=== PATIENT | male | born 1965 | race Caucasian/White ===

== ENCOUNTER 2024-11-24 13:27 | Emergency (ER) | payer BC ==
[~2024-11-24] VITALS: Ht 175.3 cm; Wt 78.0 kg
[2024-11-24 13:30] VITALS: O2SAT 99
[2024-11-24] MEDS: LIDOCAINE HCL/EPINEPHRINE 1%-EPI 1:100,000 10ML VIAL INFIL ONE (14:00)
[2024-11-24] MEDS: TETANUS, DIPHTHERIA, PERTUSSIS VAC/PF 0.5ML (>10YR OLD) IM ONE (14:34)
[2024-11-24] MEDS ORDERED: IBUP-2029 MT (15:42)
[2024-11-24 16:07] VITALS: BP 147/78; PULSE 95; RESP 14; TEMP 36.9; O2SAT 99
== END 2024-11-24 16:08 | disposition home or self-care (01) ==
LOC: ER 13:27
DX: S06.0XAA Concussion with loss of consciousness status unknown, initial encounter (principal); S01.81XA Laceration without foreign body of other part of head, initial encounter; E78.00 Pure hypercholesterolemia, unspecified; I10 Essential (primary) hypertension; Z79.899 Other long term (current) drug therapy; W22.8XXA Striking against or struck by other objects, initial encounter; Y93.89 Activity, other specified; Y92.89 Other specified places as the place of occurrence of the external cause; Y99.8 Other external cause status
CPT/HCPCS: 70450; 90715; 12013; 90471; 99285; Z7610